=== PATIENT | female | born 1990 | race Caucasian/White ===

== ENCOUNTER 2025-02-24 14:58 | Emergency (ER) | payer SELFPAY ==
[2025-02-24 15:46] VITALS: RESP 16; TEMP 96.1
[2025-02-24] MEDS ORDERED: XYLOCAINE 1% HCL 20 ML MDV ONE (15:54)
[2025-02-24] MEDS: XYLOCAINE 1% HCL 20 ML MDV IJ ONE (16:01)
--- NOTE | 2025-02-24 16:20 | ERPHSYRPT ---
- History of Present Illness Time Seen by Provider: 02/24/25 15:55 Source: patient, family Exam Limitations: no limitations Patient Subjective Stated Complaint: pt states that she has a boil, cyst, or a spider bite on her leg Triage Nursing Assessment: pt ambulated into the er; pt is axo x4; pt states 10/10 pain left upper thigh; red, dark purple area to left upper medial thigh; no drainage present to area; area is hard and swollen; no warmth present; hypertensive; no respiratory distress present Physician History: This is a 34-year-old white female patient brought to the emergency department because of an enlarging, tender left inner thigh subcutaneous mass/cysts. It has been enlarging and increasing in tenderness over the last few days. Patient is allergic to penicillin. She has no other drug allergies. She is not taking any medications. Because of the increasing size and the increasing amount of tenderness, patient is here for evaluation. Timing/Duration: day(s) (Present worsening over the last 2 to 3 days) Quality: burning Severity: mild (To moderate) Location: extremities (Left inner thigh) Possible Causes: no cause identified Associated Symptoms: change in skin texture, swelling/mass/lumps (Left inner thigh) Allergies/Adverse Reactions: Penicillins Allergy (Verified 02/24/25 15:32) Hx Tetanus, Diphtheria Vaccination/Date Given: No Hx Influenza Vaccination/Date Given: No Hx Pneumococcal Vaccination/Date Given: No Travel Risk - International Travel Have you traveled outside of the country in past 3 weeks: No - Emerging Infectious Disease Are you exhibiting symptoms associated with any current EIDs: No - Review of Systems Constitutional: No Symptoms Eyes: No Symptoms Ears, Nose, & Throat: No Symptoms Respiratory: No Symptoms Cardiac: No Symptoms Abdominal/Gastrointestinal: No Symptoms Genitourinary Symptoms: No Symptoms Musculoskeletal: No Symptoms Skin: Induration (Left inner thigh surrounding abscess), Other (Left inner thigh abscess) Neurological: No Symptoms Psychological: No Symptoms Endocrine: No Symptoms Hematologic/Lymphatic: No Symptoms Immunological/Allergic: No Symptoms All Other Systems: Reviewed and Negative - Past Medical History Pertinent Past Medical History: Yes Respiratory History: Asthma GI Medical History: Other Other Medical History: fatty liver - Past Surgical History Past Surgical History: Yes Female Surgical History: Section, Tubal Ligation Other Surgical History: x2 - Female History Hx Now: No - Social History Smoking Status: Never smoker Exposure to second hand smoke: No Drug Use: marijuana - Social Determinants of Health Will the patient participate in the screening: Yes Do you worry about a steady place to live?: No Do you have any problems with any of the following?: No known problems In the past 12 months,have you had to go without utilities?: No Transportation Issues: No Has anyone in your support network made you feel unsafe?: No Have you or anyone in your house had to go w/o enough food: No - Nursing Vital Signs Nursing Vital Signs: Initial Vital Signs Pulse Rate 81 02/24/25 15:31 Blood Pressure 158/100 02/24/25 15:31 O2 Sat by Pulse Oximetry 98 02/24/25 15:31 Pain Scale Pain Intensity 10 - Physical Exam General Appearance: no apparent distress, alert, anxiety Eye Exam: PERRL/EOMI, eyes nml inspection Ears, Nose, Throat Exam: normal ENT inspection, moist mucous membranes Neck Exam: normal inspection, non-tender, supple, full range of motion Respiratory Exam: airway intact, No chest tenderness, No respiratory distress Gastrointestinal/Abdomen Exam: No tenderness Pelvic Exam: not done Rectal Exam: not done Back Exam: normal inspection, normal range of motion, No CVA tenderness, No vertebral tenderness Extremity Exam: normal range of motion, pelvis stable, tenderness (Approximately 3 cm x 1 cm subcutaneous ballotable abscess left inner thigh with a surrounding area of induration.) Neurologic Exam: alert, oriented x 3, cooperative, 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 as tested, normal mood/affect, nml cerebellar function, nml station & gait, sensation nml Skin Exam: other (See above extremity exam) Lymphatic Exam: No adenopathy SpO2 Interpretation: normal SpO2: 98 O2 Delivery: Room Air Procedures - Incision and Drainage Time of Procedure: 16:00 Site: Left inner thigh Anesthesia: 1% Lidocaine cc's of anesthesia: 5 Blade Size: 15 I & D Procedure: betadine prep, hibiclens prep, culture obtained Results: small amount pus (To moderate) Ordered Tests: Medication Summary Discontinued Medications Generic Name Dose Route Start Last Admin Trade Name Freq PRN Reason Stop Dose Admin Lidocaine HCl 5 ml 02/24/25 15:52 02/24/25 16:01 Lidocaine Hcl 1% 20 Ml Mdv 20 Ml Ml IJ 02/24/25 15:53 5 ml STAT ONE Administration Lidocaine HCl Confirm 02/24/25 15:54 Lidocaine Hcl 1% 20 Ml Mdv 20 Ml Ml Administered 02/24/25 15:55 Dose 5 ml .ROUTE .STK-MED ONE - Progress Progress: improved, pain not gone completely, re-examined Progress Note: 02/24/25 16:18 My medical decision making and assignment of low complexity of this patient's medical issue today is based on review of the patient's past medical history, review the patient's medication list, reviewed patient drug allergy list, history present illness and physical findings on examination. The workup in this patient includes incision and drainage of abscess and culture of the abscess fluid. Differential diagnosis includes but is not limited to induration, cellulitis, abscess formation Counseled pt/family regarding: diagnosis, need for follow-up Medical Desision Making - Independent Historian Additional History obtained from: Spouse - Diagnostic Testing Diagnostic test were ordered, analyzed, and reviewed by me: Yes - Risk of complications Low Risk: Low risk of morbidity from additional dx testing or treatment The pt has a mod risk of morbidity or mortality based on: Need for prescription drug management - Departure Departure Disposition: Home Clinical Impression: Abscess of left thigh Condition: Stable Critical Care Time: No Referrals: DOCTOR,NO FAMILY [Primary Care Provider, UNKNOWN] - Follow up/PCP as directed Additional Instructions: Soak and cleanse the area twice a day as discussed. Do not apply lotions or ointments or creams. Take your antibiotics as prescribed. Call your primary care provider tomorrow, 02/25/2025, to make arrangements for follow-up appointment for further evaluation management Prescriptions: Hydrocodone/APAP 5/325 [[place] 5/325 mg] 1 each PO Q8H PRN PRN #6 tablet MDD 3 PRN Reason: Pain Smz/Tmp Ds Tablet [Bactrim Ds Tablet] 1 udtab PO BID #14 tablet
[2025-02-24] MEDS ORDERED: BACTRIM DS TABLET PO ONE (16:31)
[2025-02-24] MEDS: BACTRIM DS TABLET PO ONE (16:32)
[2025-02-24] MEDS: NORCO 5/325 MG PO ONE (16:32)
[2025-02-24] MEDS ORDERED: NORCO 5/325 MG ONE (16:32)
[2025-02-24 16:54] VITALS: BP 119/75; PULSE 77; O2SAT 100
== END 2025-02-24 16:44 | disposition home or self-care (01) ==
LOC: ED 14:58
DX: L02.416 Cutaneous abscess of left lower limb (principal)